=== PATIENT | male | born 1945 | race Caucasian/White ===

== ENCOUNTER 2019-07-25 09:55 | Outpatient (CLI) | payer MEDICARE, MEDICAID, SELFPAY ==
[2019-07-25 10:29] LABS: Basophils % 0.5 %; Eosinophils # 0.2 10^3/uL (0.0-0.8); Eosinophils % 3.7 %; Hemoglobin 13.1 g/dL (11.7-16.6); Lymphocytes # 1.3 10^3/uL (0.8-4.8); Lymphocytes % 21.3 %; Mean Corpuscular Hemoglobin 33.9 pg (28.0-34.0); Mean Corpuscular Volume 106.2 fL (80-94); Mean Platelet Volume 10.9 fL (7.4-10.4); Monocytes # 0.5 10^3/uL (0.2-0.9); Monocytes % 7.3 %; Neutrophils # 4.1 10^3/uL (1.8-7.7); Neutrophils % 66.9 %; Nucleated Red Blood Cells % 0 %; Platelet Count 204 10^3/cmm (130-400); Red Blood Count 3.86 10^6/uL (4.1-5.3); Red Cell Distribution Width 12.7 % (12.1-15.1); White Blood Count 6.1 10^3/uL (4.0-10.0)
[2019-07-25 10:47] LABS: Carcinoembryonic Antigen 5.3 ng/mL (0.0-4.7)
[2019-07-25 10:58] LABS: Alanine Aminotransferase 22 U/L (0-41); Albumin Level 4.5 g/dL (3.5-5.2); Alkaline Phosphatase 80 IU/L (40-130); Anion Gap 15.5 (5-19); Aspartate Amino Transferase 20 U/L (0-40); Blood Urea Nitrogen 14 mg/dL (8-23); Calcium 9.7 mg/dL (8.5-10.5); Carbon Dioxide 26 mmol/L (22-29); Chloride 101 mmol/L (98-107); Globulin 3.5 g/dL (1.3-4.6); Glucose 119 mg/dL (65-115); Osmolality Calculated 283 mOsm/kg (285-295); Potassium 4.5 mmol/L (3.5-5.1); Sodium 138 mmol/L (136-145); Total Bilirubin 0.5 mg/dL (0.15-1.2)
--- NOTE | 2019-07-25 11:41 | ONC FU_ITS ---
Dr. Moreno Patient Follow-Up Note Patient: Sully Cardoza Unit #: [id number]: 1945 Dicatated By: Vignesh Moreno M.D.Date of Visit:Jul 25, 2019 Onc Med Follow-up/Prog Note Chief Complaint: Colon cancer. 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 He was admitted to the hospital in March 2016 after presenting to the emergency room with a two-week history of abdominal pain. He also had been having constipation, and just prior to admission he developed nausea/vomiting. CT of the abdomen/pelvis on 03/21/2016 showed a short segment of circumferential bowel wall thickening with luminal narrowing in the proximal transverse colon. It had an apple core type appearance suggestive of a primary colon neoplasm. There are no findings of obstruction present and there was no appreciable lymphadenopathy noted. There is no other obvious metastatic involvement. Colonoscopy on 03/23/2016 showed a partially obstructing malignant appearing mass in the distal ascending colon. It is estimated 5 x 4 cm. Biopsy showed microscopic foci of infiltrating adenocarcinoma. On 04/08/2016 he underwent laparoscopic right hemicolectomy. The operative note described a partially obstructing mass at the proximal transverse colon with no evidence of peritoneal carcinomatosis or other metastatic disease. Pathology showed low-grade (well to moderately differentiated) infiltrating adenocarcinoma with invasion through the muscularis propria into the pericolonic fat. There was evidence of lymphovascular space invasion. The proximal margin was measured 16 cm, distal margin at 7 cm, and radial margin at 2 mm. There was no involvement and 14 pericolonic lymph nodes. Thus, the pathologic staging was T3, N0. An assessment for microsatellite instability showed normal expression of DNA mismatch repair proteins. I had seen the patient initially on 05/20/2016. At the time, he has indicated he would be willing to consider adjuvant chemotherapy if he was higher than average risk for recurrence. As such, I did request further evaluation with Oncotype DX. It showed a recurrence score of 39, corresponding to a 3-year risk of recurrence of 18% with a T3 primary lesion. Given that result, I recommended adjuvant chemotherapy with infusional 5-FU/leucovorin, and he did agree to treatment as recommended. His cycle 1 chemotherapy began on 07/07/2016. He tolerated it well. He was then able to continue treatment with no delays or dose adjustments. He began his 12th and final cycle of chemotherapy on 12/08/2016. Surveillance CT of the abdomen/pelvis on 01/06/2017 showed no evidence of recurrence/metastatic disease. His surveillance colonoscopy on 03/17/2017 showed normal looking ileocolon anastomosis with no other abnormalities noted. 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 He has been followed by Dr. Son at pain clinic. His other medical illnesses include hypertension, hyperlipidemia, and COPD. He has a history of smoking for 58 years, previously up to 3 packs of cigarettes daily. He had cut down to 4 cigarettes per day, and he has been trying to quit. INTERIM HISTORY: CT scans on 07/08/2017 showed no evidence of recurrent or metastatic disease in the chest, abdomen, or pelvis. There were findings of chronic emphysema which were noted to have progressed compared to previous study from July 2014. There was central pulmonary artery enlargement compatible with pulmonary hypertension. There was diffuse fatty infiltration of the liver. There were degenerative changes in the thoracic spine and there was evidence of remote L1 and L5 compression fractures. His laboratory studies on 08/01/2018 did show a slight increase in the CEA level, to 5.1 ng/mL. Surveillance CT scans at that time showed chronic emphysema, suspected pulmonary hypertension, and unchanged infrarenal abdominal aortic aneurysm measuring 3.3 cm. There was no evidence of disease progression in the chest, abdomen, or pelvis. He continued on observation/expectant management. Surveillance colonoscopy on 11/16/2018 showed a few small diverticuli in the distal sigmoid colon. There were no other abnormal findings. Repeat CEA at that time was stable at 5.3 ng/mL. He continued on observation/expectant management. He is seen for a follow-up visit. He continues have very limited activity due to pain in his lower back and right hip. He says he has had no pain medication since August of last year. His ECOG score is 3. Appetite is variable. His weight is stable. He does not have fever or night sweats. He always has sinus drainage. He has just occasional cough. He has some shortness of breath with activity. He is still smoking, but only 4 cigarettes/day. He occasionally has discomfort at the Port-A-Cath site. He otherwise has no chest pain. He has no GI/ complaints other than occasional heartburn, which he manages with Tums. He has occasional slight headache. He occasionally gets lightheaded. He has started having some numbness/tingling on the bottom of his right foot. He has no other focal neurologic symptoms. Medications: Advair Diskus 1 (250-50 mcg/dose) Aerosol Powder, Breath Activated Inhalation b.i.d., Ativan 0.5 - 1 (1 mg) Tablet Oral t.i.d. PRN, Atorvastatin Calcium 1 (80 mg) Tablet Oral daily, Incruse Ellipta 1 (62.5 mcg/inh) Aerosol Powder, Breath Activated Inhalation daily, Lisinopril 1 (10 mg) Tablet Oral daily, Loratadine 1 (10 mg) Capsule Oral daily Allergies: No Known Allergies. Review of Systems: Constitutional - His energy level is okay. His activity level is limited due to uncontrolled back and hip pain. His appetite comes and goes, but he is able to eat. His weight is stable from his last visit. No fever, chills, hot flashes, or night sweats. ECOG score is 3, ENMT - He has chronic sinus drainage. No mouth sores. No sore throat or difficulty swallowing, Hematologic/Lymphatic - No abnormal bruising or bleeding, Respiratory - He gets short of breath with activity. He has a cough. No pleuritic pain or hemoptysis, Cardiovascular - No angina pain. No palpitations. He gets occasional pain to his upper chest well where his port was, Gastrointestinal - No nausea or vomiting. He gets occasional heartburn depending on what he eats, but it well controlled with Tums. No diarrhea or constipation. No blood in the stool or black stools, Genitourinary (M) - No dysuria or hematuria. No urinary frequency. No urgency or incontinence, Musculoskeletal - He is having a significant amount of pain in his back and right hip, which is chronic for him, Integumentary - No skin complications, Neurologic - He has occasional headaches. He occasionally gets lightheaded. He has recently started having numbness/tingling on the bottom of his right foot, Psychiatric - He has some mild anxiety. No depression. He has insomnia. Vital Signs: Performed on Jul 25, 2019 10:16 Height - 71.00 in Weight - 214.8 lbs (HIGH) BSA - 2.17 sq.m BMI - 29.96 Temperature - 98.7 F Pulse - 79 /min Respiration - 24 /min BP - 158/90 mm(hg) (HIGH) O2 Sat - 97 % Pain - 9 Physical Examination: Constitutional - He appears generally weak and chronically ill. He has poor mobility, Eyes - Sclerae nonicteric. Conjunctivae clear, ENMT - No lesions noted in the oral cavity, Hematologic/Lymphatic - No cervical, clavicular, or axillary adenopathy, Respiratory - Lungs sound clear with diminished air movement bilaterally, Cardiovascular - Heart rhythm is regular. There is no murmur, gallop, or rub noted, Abdomen - Soft. Liver and spleen are not enlarged. There is no abdominal mass or ascites noted and there is no inguinal adenopathy, Extremities - No edema, Neurologic - No focal neurologic deficits noted. Lab/Imaging: Test performed on Jul 25, 2019 10:05 Sodium 138 mmol/L Potassium 4.5 mmol/L Chloride 101 mmol/L CO2 26 mmol/L Anion Gap 15.5 BUN 14 mg/dL Creatinine 1.0 mg/dL Cr Clearance (Est) 87.9600 mL/min Glucose 119 mg/dL Calcium 9.7 mg/dL Protein, Total 8.0 g/dL Albumin 4.5 g/dL Globulin 3.5 g/dL Bilirubin, Total 0.5 mg/dL ALT (SGPT) 22 U/L AST (SGOT) 20 U/L Alkaline Phosphatase 80 IU/L WBC 6.1 10 3/uL RBC 3.86 10 6/uL HGB 13.1 g/dL HCT 41.0 % MCV 106.2 fL MCH 33.9 pg MCHC 32.0 g/dL RDW 12.7 % Platelet Count 204 10 3/cmm MPV 10.9 fL Neutrophils 4.1 10 3/uL Lymphocytes 1.3 10 3/uL Monocytes 0.5 10 3/uL Eosinophils 0.2 10 3/uL Basophils 0.0 10 3/uL Neutrophil % 66.9 % Lymphocyte % 21.3 % Monocyte % 7.3 % Eosinophil % 3.7 % Basophils % 0.5 % CEA 5.3 ng/mL Impression: 1. 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 He underwent laparoscopic right hemicolectomy on 04/08/2016. He had no obstruction, perforation, or other high risk clinical features. He had adequate lymph node sampling, but there was pathologic evidence of vascular space invasion. Microsatellite instability studies showed normal expression of DNA mismatch repair proteins. 2. He had further evaluation with Oncotype DX which showed a recurrence score of 39, corresponding to a 3-year risk of recurrence of 18%. Given that result, he was agreeable to adjuvant chemotherapy. His other medical illnesses include: 3. Hypertension. 4. Hyperlipidemia. 5. COPD. 6. 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 He began adjuvant chemotherapy with infusional 5-FU/leucovorin on 07/07/2016. He has had some gradual increase in fatigue and anorexia during the chemotherapy, but he otherwise tolerated it well. As of 12/08/2016 he began his 12th and final cycle of treatment. He had negative surveillance CT abdomen/pelvis on 01/06/2017 and there were no significant abnormalities noted on his surveillance colonoscopy on 03/17/2017. During follow-up he did show slight increase in his CEA level, but it then stabilized. There has been no evidence of recurrence of the colon cancer on his surveillance CT scans or his surveillance colonoscopy. He has had very limited activity due to his chronic pain, indicates that he has had no pain medication since August of last year. In the past he has benefited with radiofrequency ablation procedures. He indicates he has been told that he is not a surgical candidate. Plan: He remains on observation/expectant management for the colon cancer. I am going to defer his surveillance CT scans until his next visit, which will be in 6 months. In the meantime, I will see if I get him scheduled to be seen at pain clinic for his back/hip pain. Signed By: Vignesh Moreno M.D. <<Signature on File>>
== END 2019-07-25 09:56 | disposition home or self-care (01) ==
LOC: ONCMED 09:58
PROVIDERS: Family Provider Internal Medicine; PCP Internal Medicine; Visit Provider Internal Medicine Medical Oncology
DX: Z08 Encounter for follow-up examination after completed treatment for malignant neoplasm (principal); Z85.038 Personal history of other malignant neoplasm of large intestine; J43.9 Emphysema, unspecified; M19.90 Unspecified osteoarthritis, unspecified site; G89.29 Other chronic pain; I10 Essential (primary) hypertension; E78.5 Hyperlipidemia, unspecified; F17.210 Nicotine dependence, cigarettes, uncomplicated; I27.20 Pulmonary hypertension, unspecified; K76.0 Fatty (change of) liver, not elsewhere classified; Z79.51 Long term (current) use of inhaled steroids; Z92.21 Personal history of antineoplastic chemotherapy; Z90.49 Acquired absence of other specified parts of digestive tract
CPT/HCPCS: 36415; 80053; 82378; 85025; 99214

== ENCOUNTER → 2019-08-01 08:21 | Outpatient (BNVA) | payer MEDICARE, MEDICAID, SELFPAY | PROVIDERS: Family Provider Internal Medicine; PCP Internal Medicine; Visit Provider Anesthesiology Pain Medicine | DX: M47.816 Spondylosis without myelopathy or radiculopathy, lumbar region (principal); M62.830 Muscle spasm of back; F17.210 Nicotine dependence, cigarettes, uncomplicated; Z79.891 Long term (current) use of opiate analgesic | CPT/HCPCS: 99205 ==

== ENCOUNTER → 2019-09-15 14:26 | Outpatient (BNVA) | payer MEDICARE, MEDICAID, SELFPAY | PROVIDERS: Family Provider Internal Medicine; PCP Internal Medicine; Visit Provider Anesthesiology Pain Medicine | DX: M47.816 Spondylosis without myelopathy or radiculopathy, lumbar region (principal); M54.9 Dorsalgia, unspecified; F17.210 Nicotine dependence, cigarettes, uncomplicated; Z79.891 Long term (current) use of opiate analgesic | CPT/HCPCS: 64635; 64636; 77003; J1030; J2001 ==

== ENCOUNTER → 2019-09-27 10:11 | Outpatient (BNVA) | payer MEDICARE, MEDICAID, SELFPAY | PROVIDERS: Family Provider Internal Medicine; PCP Internal Medicine; Visit Provider Anesthesiology Pain Medicine | DX: M25.551 Pain in right hip (principal); M47.816 Spondylosis without myelopathy or radiculopathy, lumbar region; M54.9 Dorsalgia, unspecified; M62.830 Muscle spasm of back; F17.210 Nicotine dependence, cigarettes, uncomplicated; Z79.891 Long term (current) use of opiate analgesic | CPT/HCPCS: 99213; 99214 ==

== ENCOUNTER → 2019-10-03 12:24 | Outpatient (BNVA) | payer MEDICARE, MEDICAID, SELFPAY | PROVIDERS: Family Provider Internal Medicine; PCP Internal Medicine; Visit Provider Anesthesiology Pain Medicine | DX: M47.816 Spondylosis without myelopathy or radiculopathy, lumbar region (principal); M54.9 Dorsalgia, unspecified; F17.210 Nicotine dependence, cigarettes, uncomplicated; Z79.891 Long term (current) use of opiate analgesic | CPT/HCPCS: 64635; 64636; 77003; J1030; J2001 ==

== ENCOUNTER → 2019-10-18 09:53 | Outpatient (BNVA) | payer MEDICARE, MEDICAID, SELFPAY | PROVIDERS: Family Provider Internal Medicine; PCP Internal Medicine; Visit Provider Anesthesiology Pain Medicine | DX: M47.816 Spondylosis without myelopathy or radiculopathy, lumbar region (principal); M54.9 Dorsalgia, unspecified; M62.830 Muscle spasm of back; F17.210 Nicotine dependence, cigarettes, uncomplicated; Z79.891 Long term (current) use of opiate analgesic | CPT/HCPCS: 99213; 99214 ==

== ENCOUNTER 2019-11-08 13:10 | Outpatient (CLI) | payer MEDICARE, MEDICAID, SELFPAY ==
--- NOTE | 2019-11-08 13:22 | CT_ITS ---
WS: [id number] CT LUNG CANCER SCREENING DLP: 76.38 mGy.cm DIvol: 2.13 mGy CLINICAL INFORMATION SCREENING VISIT: Baseline COMPARISON: Chest CT 08/01/2018 FINDINGS Diagnostic quality: Satisfactory Comments: None. Lung Nodules: None. Lungs: Benign granuloma periphery LEFT upper lobe measures 7.4 mm. Marked hyperexpansion with parasep pito emphysema. Heart: Normal size heart. No pericardial effusion. Other findings: Moderately enlarged pulmonary artery measuring 3.7 cm in diameter. Mild atheroscleros is aorta. No coronary artery calcifications. No pericardial pleural effusion. CT/CT lung screening [id number] IMPRESSION: LUNG-RADS: 2-Benign Appearance or Behavior FOLLOW UP: 12 Month: Continue annual screening with LDCT
== END 2019-11-08 13:11 | disposition home or self-care (01) ==
LOC: RAD 13:14
PROVIDERS: PCP Internal Medicine; Visit Provider Internal Medicine
DX: Z12.2 Encounter for screening for malignant neoplasm of respiratory organs (principal); F17.210 Nicotine dependence, cigarettes, uncomplicated
CPT/HCPCS: G0297

== ENCOUNTER → 2019-11-21 11:20 | Outpatient (BNVA) | payer MEDICARE, MEDICAID, SELFPAY | PROVIDERS: Family Provider Internal Medicine; PCP Internal Medicine; Visit Provider Anesthesiology Pain Medicine | DX: M47.816 Spondylosis without myelopathy or radiculopathy, lumbar region (principal); M54.9 Dorsalgia, unspecified; M62.830 Muscle spasm of back; F17.210 Nicotine dependence, cigarettes, uncomplicated; Z79.891 Long term (current) use of opiate analgesic | CPT/HCPCS: 99213 ==

== ENCOUNTER → 2019-12-20 10:49 | Outpatient (BNVA) | payer MEDICARE, MEDICAID, SELFPAY | PROVIDERS: Family Provider Internal Medicine; PCP Internal Medicine; Visit Provider Anesthesiology Pain Medicine | DX: M47.816 Spondylosis without myelopathy or radiculopathy, lumbar region (principal); M54.9 Dorsalgia, unspecified; M62.830 Muscle spasm of back; Z79.891 Long term (current) use of opiate analgesic | CPT/HCPCS: 99213; 99214 ==

== ENCOUNTER 2019-12-27 07:49 | Day surgery (SDC) | payer MEDICARE, MEDICAID, SELFPAY ==
[2019-12-25 11:07] VITALS: BMI 29.2
[2019-12-27 07:59] VITALS: BP 152/98; PULSE 74; RESP 18; TEMP 37.1; O2SAT 95
[2019-12-27] MEDS: sodium chloride 0.9% 1,000 ML 30 ML IV (08:31)
--- NOTE | 2019-12-27 09:10 | P.ANESASSM_ITS ---
Pre-Anesthetic Assessment Pre-Anesthetic Assessment: Height/Weight: Height 1.78 m Weight 92.533 kg Temp Pulse Resp BP Pulse Ox 98.7 F 74 18 152/98 95 12/27/19 07:59 12/27/19 07:59 12/27/19 07:59 12/27/19 07:59 12/27/19 07:59 Preop Diagnosis: History of colon cancer Proposed Procedure: Operation Date: 12/27/19 09:15 Proposed Procedures p Colonoscopy 00167 Z85.038(Not Applicable) - Vikas Oviedo MD Was Beta Vickey taken within 24 hours: N/A Last intake: Intake Last Liquid Date 12/26/19 Last Liquid Time 22:00 Last Solid Date 12/25/19 Last Solid Time 18:30 Social: Social History: Tobacco Exam: Pre-Anes Outpt Exam: alert, oriented x 3 and regular rate & rhythm Additional Exam Findings (including area of procedure): Late expiratory wheezes Airway: Submandibular: WNL Cervical ROM: WNL MP: 1 Dentition: Full Pulmonary: Pulmonary: COPD CV/HEM: CV/HEM: HTN : : None reported Hepatic: Hepatic: None reported GI: GI: GERD Comments: Mild food triggered GERD Metabolic: Metabolic: None reported Musc/skel: Musc/skel: None reported Neuropsych: Neuropsych: None reported Anesthetic Plan: ASA status: 3 Anesthesia: MAC Meds/Allergies 2 Current Medications: Current Medications Generic Name Dose Route Start Last Admin Trade Name Freq PRN Reason Stop Dose Admin Sodium Chloride 1,000 mls @ 30 ml s/hr 12/27/19 08:00 12/27/19 08:31 Sodium Chloride 0.9% IV 30 mls/hr .Q24H YAJAIRA Administration PFSH Anesthesia PFSH: Medical History COPD (chronic obstructive pulmonary disease) DDD (degenerative disc disease) HTN (hypertension) Hx of colon cancer, stage II Hyperlipidemia assisted (current) use of opiate analgesic Pain management contract signed Smoker Surgical History History of ankle surgery Right ankle 1980 History of colonoscopy History of implanted electronic device Spinal Cord Stimulator permanent placed 01/2013 then removed 01/2014 due to no relief Hx of colectomy 2015 Hx of knee surgery Left -Jun 1982 cartilage removed Hx of total knee replacement Left -2002 Family History Denies family history of Anesthesia complication Bleeding disorder Social History Smoking and tobacco status: current every day smoker cigarettes Alcohol intake: former Data Anesthesia Cardiac Studies: No Data to Display
--- NOTE | 2019-12-27 09:50 | W.PM.OPSUD ---
Surgery/Procedure H&P Update DATE OF PROCEDURE: December 27, 2019 DATE H&P PERFORMED: 11/29/19 H&P UPDATE INFORMATION: I have reviewed H&P completed within last 30 days, I have examined patient prior to procedure and No changes to prior documentation PREOP DIAGNOSIS: History of colon cancer PRIMARY INDICATION FOR PROCEDURE: The same PLANNED PROCEDURE: Operation Date: 12/27/19 09:15 Proposed Procedures p Colonoscopy [id number] Z85.038(Not Applicable) - Vikas Oviedo MD
[2019-12-27 10:09] VITALS: BP 95/59; PULSE 59; RESP 18; TEMP 36.1; O2SAT 100
[2019-12-27 10:22] VITALS: BP 128/71; PULSE 60; RESP 18; O2SAT 99
--- NOTE | 2019-12-27 10:33 | ANE.PACU2 ---
Inpatient post-anesthesia follow up: Airway intact: Yes Vital signs: Temperature 97.0 F Pulse Rate 60 Respiratory Rate 18 Blood Pressure 128/71 Pulse Oximetry 99 Oxygen Delivery Me thod Room Air Oxygen Flow Rate 2 Fraction of Inspir ed Oxygen Hydration adequate: Yes Nausea and vomiting: No Mental status: Baseline
== END 2019-12-27 10:50 | disposition home or self-care (01) ==
PROVIDERS: PCP Internal Medicine; Visit Provider Surgery
PROC: 0DJD8ZZ Inspection of Lower Intestinal Tract, Via Natural or Artificial Opening Endoscopic (ICD-10-PCS; CPT 45378; principal; 2019-12-27 09:15)
DX: Z12.11 Encounter for screening for malignant neoplasm of colon (principal); K57.30 Diverticulosis of large intestine without perforation or abscess without bleeding; J44.9 Chronic obstructive pulmonary disease, unspecified; I10 Essential (primary) hypertension; K21.9 Gastro-esophageal reflux disease without esophagitis; E78.5 Hyperlipidemia, unspecified; F17.210 Nicotine dependence, cigarettes, uncomplicated; Z85.038 Personal history of other malignant neoplasm of large intestine; Z79.891 Long term (current) use of opiate analgesic; Z90.49 Acquired absence of other specified parts of digestive tract; Z98.0 Intestinal bypass and anastomosis status
CPT/HCPCS: 12345; 45378; J2704; J7030

== ENCOUNTER → 2020-01-17 09:24 | Outpatient (BNVA) | payer MEDICARE, MEDICAID, SELFPAY | PROVIDERS: Family Provider Internal Medicine; PCP Internal Medicine; Visit Provider Anesthesiology Pain Medicine | DX: M54.42 Lumbago with sciatica, left side (principal); M54.41 Lumbago with sciatica, right side; M47.816 Spondylosis without myelopathy or radiculopathy, lumbar region; M54.9 Dorsalgia, unspecified; M62.830 Muscle spasm of back; F17.210 Nicotine dependence, cigarettes, uncomplicated; Z79.891 Long term (current) use of opiate analgesic | CPT/HCPCS: 99213 ==

== ENCOUNTER 2020-01-23 09:28 | Outpatient (CLI) | payer MEDICARE, MEDICAID, SELFPAY ==
--- NOTE | 2020-01-23 09:31 | CT_ITS ---
WS: [id number] CT CHEST, ABDOMEN, AND PELVIS TECHNIQUE: Contrast-enhanced CT of the chest, abdomen, and pelvis with coronal and sagittal reformatt ed images. CLINICAL INFORMATION: COLON CANCER COMPARISON: CT abdomen pelvis October 28, 2018 CT chest abdomen pelvis 08/01/2018 and 12/20/2017. CT chest November 08, 2019 DLP: 1853.[address] scans at [facility] use at least one of these dose optimization techniques: automat ed exposure control; mA and/or kV adjustment per patient size (includes targeted exams where dose is matched to clinical indication); or iterative reconstruction. CT CHEST: Calcified granuloma right upper lobe. Mild chronic emphysematous changes. No suspicious pulmonary par enchymal opacities. No acute pulmonary infiltrates. Normal thyroid gland. No mediastinal or hilar lym phadenopathy. Central pulmonary artery enlargement unchanged. Moderate aortic arch calcification. No axillary lymphadenopathy. CT ABDOMEN AND PELVIS: Prior postoperative changes right hemicolectomy with ileocolic anastomosis. Diffuse fatty infiltratio n liver. Normal gallbladder. Normal portal vein and splenic vein. Adrenal glands are normal. Normal r enal parenchymal enhancement. No hydronephrosis. Right renal cysts the largest measuring 3.9 CM. Aneu rysmal infrarenal abdominal aorta measuring 3.3 x 3.3 AP by transverse unchanged. No evidence of small or large bowel obstruction. Mild constipation. Incidental fat-containing umbilic al hernia. No herniated bowel. Normal GE junction. No periaortic lymphadenopathy. No pelvic lymphaden opathy. No inguinal lymphadenopathy. Mild thoracic kyphosis. Mild chronic appearing compression super ior endplates at L1 and L5. Thoracic dorsal column stimulator. CT/CT chest abd pel w con* IMPRESSION: 1. No evidence of new or progressed metastatic disease in the chest abdomen or pelvis. 2. Both lungs are well aerated. Chronic emphysematous change. 3. Stable infrarenal abdominal aortic aneurysm measuring 3.3 cm. 4. Incidental Supraumbilical fat-containing hernia. 5. Thoracic Dorsal column stimulator. 6. Mild chronic compression superior endplate L1 and L5 vertebral bodies uncha nged
[2020-01-23 10:02] LABS: Basophils % 0.4 %; Eosinophils # 0.2 10^3/uL (0.0-0.8); Eosinophils % 3.4 %; Hematocrit 38.7 % (42.0-52.0); Hemoglobin 12.3 g/dL (11.7-16.6); Lymphocytes # 1.1 10^3/uL (0.8-4.8); Lymphocytes % 15.9 %; Mean Corpuscular HGB Conc 31.8 g/dL (30.0-36.0); Mean Corpuscular Volume 106.9 fL (80-94); Monocytes # 0.4 10^3/uL (0.2-0.9); Monocytes % 6.5 %; Neutrophils # 4.99 10^3/uL (1.8-7.7); Neutrophils % 73.5 %; Nucleated Red Blood Cells % 0 %; Platelet Count 227 10^3/cmm (130-400); Red Blood Count 3.62 10^6/uL (4.1-5.3); Red Cell Distribution Width 12.2 % (12.1-15.1); White Blood Count 6.8 10^3/uL (4.0-10.0)
[2020-01-23] MEDS: iohexol 300 mg/mL 50 mL Btl PO (10:29)
[2020-01-23 10:48] LABS: Carcinoembryonic Antigen 4.5 ng/mL (0.0-4.7)
[2020-01-23 11:00] LABS: Alanine Aminotransferase 21 U/L (0-41); Albumin Level 4.7 g/dL (3.5-5.2); Alkaline Phosphatase 60 IU/L (40-130); Anion Gap 14.5 (5-19); Aspartate Amino Transferase 18 U/L (0-40); Blood Urea Nitrogen 27 mg/dL (8-23); Calcium 9.1 mg/dL (8.5-10.5); Carbon Dioxide 26 mmol/L (22-29); Chloride 103 mmol/L (98-107); Globulin 3.2 g/dL (1.3-4.6); Glucose 113 mg/dL (65-115); Osmolality Calculated 294 mOsm/kg (285-295); Potassium 4.5 mmol/L (3.5-5.1); Sodium 139 mmol/L (136-145); Total Bilirubin 0.5 mg/dL (0.15-1.2); Total Protein 7.9 g/dL (6.6-8.7)
[2020-01-23] MEDS: iodixanol 320 mg/mL 100mL Btl IV (11:17)
== END 2020-01-23 09:29 | disposition home or self-care (01) ==
LOC: RAD 09:29
PROVIDERS: PCP Internal Medicine; Visit Provider Internal Medicine Medical Oncology
DX: C18.4 Malignant neoplasm of transverse colon (principal); K43.9 Ventral hernia without obstruction or gangrene; I71.4 Abdominal aortic aneurysm, without rupture
CPT/HCPCS: 36415; 71260; 74177; 80053; 82378; 85025

== ENCOUNTER 2020-01-24 11:56 | Outpatient (RCR) | payer MEDICARE, MEDICAID, SELFPAY | END 2020-01-31 23:59 | disposition home or self-care (01) | LOC: SPT 11:56 | PROVIDERS: PCP Internal Medicine; Referring Provider Anesthesiology Pain Medicine; Visit Provider Anesthesiology Pain Medicine | DX: M47.816 Spondylosis without myelopathy or radiculopathy, lumbar region (principal) | CPT/HCPCS: 97162 ==

== ENCOUNTER 2020-01-25 12:22 | Outpatient (CLI) | payer MEDICARE, MEDICAID, SELFPAY ==
--- NOTE | 2020-01-25 13:08 | ONC FU_ITS ---
Dr. Moreno Patient Follow-Up Note Patient: Sully Cardoza Unit #: [id number]: 1945 Dicatated By: Vignesh Moreno M.D.Date of Visit:Jan 25, 2020 Onc Med Follow-up/Prog Note Chief Complaint: Colon cancer. 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 He was admitted to the hospital in March 2016 after presenting to the emergency room with a two-week history of abdominal pain. He also had been having constipation, and just prior to admission he developed nausea/vomiting. CT of the abdomen/pelvis on 03/21/2016 showed a short segment of circumferential bowel wall thickening with luminal narrowing in the proximal transverse colon. It had an apple core type appearance suggestive of a primary colon neoplasm. There are no findings of obstruction present and there was no appreciable lymphadenopathy noted. There is no other obvious metastatic involvement. Colonoscopy on 03/23/2016 showed a partially obstructing malignant appearing mass in the distal ascending colon. It is estimated 5 x 4 cm. Biopsy showed microscopic foci of infiltrating adenocarcinoma. On 04/08/2016 he underwent laparoscopic right hemicolectomy. The operative note described a partially obstructing mass at the proximal transverse colon with no evidence of peritoneal carcinomatosis or other metastatic disease. Pathology showed low-grade (well to moderately differentiated) infiltrating adenocarcinoma with invasion through the muscularis propria into the pericolonic fat. There was evidence of lymphovascular space invasion. The proximal margin was measured 16 cm, distal margin at 7 cm, and radial margin at 2 mm. There was no involvement and 14 pericolonic lymph nodes. Thus, the pathologic staging was T3, N0. An assessment for microsatellite instability showed normal expression of DNA mismatch repair proteins. I had seen the patient initially on 05/20/2016. At the time, he has indicated he would be willing to consider adjuvant chemotherapy if he was higher than average risk for recurrence. As such, I did request further evaluation with Oncotype DX. It showed a recurrence score of 39, corresponding to a 3-year risk of recurrence of 18% with a T3 primary lesion. Given that result, I recommended adjuvant chemotherapy with infusional 5-FU/leucovorin, and he did agree to treatment as recommended. His cycle 1 chemotherapy began on 07/07/2016. He tolerated it well. He was then able to continue treatment with no delays or dose adjustments. He began his 12th and final cycle of chemotherapy on 12/08/2016. Surveillance CT of the abdomen/pelvis on 01/06/2017 showed no evidence of recurrence/metastatic disease. His surveillance colonoscopy on 03/17/2017 showed normal looking ileocolon anastomosis with no other abnormalities noted. 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 He has been followed by Dr. Son at pain clinic. His other medical illnesses include hypertension, hyperlipidemia, and COPD. He has a history of smoking for 58 years, previously up to 3 packs of cigarettes daily. He had cut down to 4 cigarettes per day, and he has been trying to quit. INTERIM HISTORY: CT scans on 07/08/2017 showed no evidence of recurrent or metastatic disease in the chest, abdomen, or pelvis. There were findings of chronic emphysema which were noted to have progressed compared to previous study from July 2014. There was central pulmonary artery enlargement compatible with pulmonary hypertension. There was diffuse fatty infiltration of the liver. There were degenerative changes in the thoracic spine and there was evidence of remote L1 and L5 compression fractures. His laboratory studies on 08/01/2018 did show a slight increase in the CEA level, to 5.1 ng/mL. Surveillance CT scans at that time showed chronic emphysema, suspected pulmonary hypertension, and unchanged infrarenal abdominal aortic aneurysm measuring 3.3 cm. There was no evidence of disease progression in the chest, abdomen, or pelvis. He continued on observation/expectant management. Surveillance colonoscopy on 11/16/2018 showed a few small diverticuli in the distal sigmoid colon. There were no other abnormal findings. Repeat CEA at that time was stable at 5.3 ng/mL. He continued on observation/expectant management. His surveillance colonoscopy on 12/27/2019 showed patent ileocolic anastomosis. There evidence of diverticulosis in the sigmoid colon. There were no other abnormalities noted. Surveillance CT scans on 01/23/2020 showed no evidence of new or progressed metastatic disease in the chest, abdomen, or pelvis. He is seen for a scheduled visit. He continues to have limited activity due to his pain. He is mostly sedentary. ECOG score is 3. Appetite is generally good, though his weight is down 8 pounds. He does not have fever or night sweats. He has chronic shortness of breath. His breathing is about the same. He has very little cough. He does not complain of chest pain. He has occasional postprandial vomiting, mainly when his pain is bad. He has no complaints with bowel or bladder function. His pain is mainly in the back and hip. He does not complain of headache or dizziness. He has a little numbness/tingling on the bottom of his right foot. He has no other focal neurologic symptoms. Medications: Advair Diskus 1 (250-50 mcg/dose) Aerosol Powder, Breath Activated Inhalation b.i.d., Ativan 0.5 - 1 (1 mg) Tablet Oral t.i.d. PRN, Atorvastatin Calcium 1 (80 mg) Tablet Oral daily, Incruse Ellipta 1 (62.5 mcg/inh) Aerosol Powder, Breath Activated Inhalation daily, Lisinopril 1 (10 mg) Tablet Oral daily, Loratadine 1 (10 mg) Capsule Oral daily, oxyCODONE-Acetaminophen 1 Tablet (of 7.5-325 mg) Oral t.i.d. PRN Allergies: No Known Allergies. Review of Systems: Constitutional - He has very limited activity due to his pain. He is mostly sedentary. Appetite is generally good. His weight is down 8 pounds. He does not have fever or night sweats. ECOG score is 3, ENMT - He has sinus congestion/drainage. No mouth sores. No sore throat or difficulty swallowing, Hematologic/Lymphatic - No abnormal bruising or bleeding, Respiratory - He has shortness of breath. He has very little cough. No pleuritic pain or hemoptysis, Cardiovascular - No angina pain. No palpitations, Gastrointestinal - He has occasional postprandial vomiting, mainly just when his pain is bad. No heartburn or acid reflux. No diarrhea or constipation. No blood in the stool or black stools, Genitourinary (M) - No dysuria or hematuria. No urinary frequency. No urgency or incontinence, Musculoskeletal - He has pain in his back and hip, Integumentary - No skin rash, Neurologic - No headache or dizziness. He has a little numbness/tingling on the bottoms of his feet. No other focal neurologic symptoms, Psychiatric - No anxiety or depression. He does not sleep well at night. Vital Signs: Performed on Jan 25, 2020 12:34 Height - 71.00 in Weight - 206.6 lbs (LOW) BSA - 2.14 sq.m BMI - 28.82 Temperature - 98.2 F (LOW) Pulse - 75 /min Respiration - 22 /min BP - 159/79 mm(hg) (HIGH) O2 Sat - 96 % Pain - 9 Physical Examination: Constitutional - He has poor mobility. He does not appear acutely ill, Eyes - Sclerae nonicteric. Conjunctivae clear, ENMT - No lesions noted in the oral cavity, Hematologic/Lymphatic - No cervical, clavicular, or axillary adenopathy, Respiratory - Lungs show diminished air movement bilaterally. There are coarse rales bilaterally and there are mild expiratory rhonchi, Cardiovascular - Heart rhythm is regular. There is no murmur, gallop, or rub noted, Abdomen - Soft. Liver and spleen are not enlarged. There is no abdominal mass or ascites noted and there is no inguinal adenopathy, Extremities - No edema, Neurologic - No focal neurologic deficits noted. Lab/Imaging: CBC shows hemoglobin 12.3 g, white blood cell count 6800, and platelet count 227,000. Comprehensive metabolic profile is unremarkable except for borderline renal function with BUN 27 and creatinine 1.2 mg/dL. The bilirubin and liver enzymes are normal. CEA is down slightly at 4.5 ng/mL. Impression: 1. 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 He underwent laparoscopic right hemicolectomy on 04/08/2016. He had no obstruction, perforation, or other high risk clinical features. He had adequate lymph node sampling, but there was pathologic evidence of vascular space invasion. Microsatellite instability studies showed normal expression of DNA mismatch repair proteins. 2. He had further evaluation with Oncotype DX which showed a recurrence score of 39, corresponding to a 3-year risk of recurrence of 18%. Given that result, he was agreeable to adjuvant chemotherapy. His other medical illnesses include: 3. Hypertension. 4. Hyperlipidemia. 5. COPD. 6. 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 He began adjuvant chemotherapy with infusional 5-FU/leucovorin on 07/07/2016. He has had some gradual increase in fatigue and anorexia during the chemotherapy, but he otherwise tolerated it well. As of 12/08/2016 he began his 12th and final cycle of treatment. He had negative surveillance CT abdomen/pelvis on 01/06/2017 and there were no significant abnormalities noted on his surveillance colonoscopy on 03/17/2017. During follow-up he did show slight increase in his CEA level, but it then stabilized. There was no evidence of recurrence of the colon cancer on his surveillance CT scans or his surveillance colonoscopy. His CEA had subsequently stabilized and the current study is down a little. His overall clinical status has remained stable. He continues to have limited activity due to his chronic pain and he does have significant underlying COPD. There has been no evidence of recurrence of the colon cancer. Plan: He remains on observation/expectant management for the colon cancer. He will be scheduled for a follow-up visit in 6 months. Signed By: Vignesh Moreno M.D. <<Signature on File>>
== END 2020-01-25 12:23 | disposition home or self-care (01) ==
PROVIDERS: PCP Internal Medicine; Visit Provider Internal Medicine Medical Oncology
DX: Z08 Encounter for follow-up examination after completed treatment for malignant neoplasm (principal); Z85.038 Personal history of other malignant neoplasm of large intestine; J44.9 Chronic obstructive pulmonary disease, unspecified; Z90.49 Acquired absence of other specified parts of digestive tract; Z92.21 Personal history of antineoplastic chemotherapy; I10 Essential (primary) hypertension; E78.5 Hyperlipidemia, unspecified; M19.90 Unspecified osteoarthritis, unspecified site; M47.9 Spondylosis, unspecified; G89.29 Other chronic pain
CPT/HCPCS: G0463

== ENCOUNTER → 2020-02-15 11:12 | Outpatient (BNVA) | payer MEDICARE, MEDICAID, SELFPAY | PROVIDERS: Family Provider Internal Medicine; PCP Internal Medicine; Visit Provider Anesthesiology Pain Medicine | DX: M47.816 Spondylosis without myelopathy or radiculopathy, lumbar region (principal); M54.9 Dorsalgia, unspecified; M62.830 Muscle spasm of back; F17.210 Nicotine dependence, cigarettes, uncomplicated | CPT/HCPCS: 99213; 99214 ==

== ENCOUNTER → 2020-03-18 10:13 | Outpatient (BNVA) | payer MEDICARE, MEDICAID, SELFPAY | PROVIDERS: Family Provider Internal Medicine; PCP Internal Medicine; Visit Provider Anesthesiology Pain Medicine | DX: M47.816 Spondylosis without myelopathy or radiculopathy, lumbar region (principal); M54.9 Dorsalgia, unspecified; M62.830 Muscle spasm of back; F17.210 Nicotine dependence, cigarettes, uncomplicated; Z79.891 Long term (current) use of opiate analgesic | CPT/HCPCS: 99212; 99213 ==

== ENCOUNTER → 2020-04-15 10:35 | Outpatient (BNVA) | payer MEDICARE, MEDICAID, SELFPAY | PROVIDERS: Family Provider Internal Medicine; PCP Internal Medicine; Visit Provider Anesthesiology Pain Medicine | DX: M54.9 Dorsalgia, unspecified (principal); M47.816 Spondylosis without myelopathy or radiculopathy, lumbar region; M62.830 Muscle spasm of back; Z79.891 Long term (current) use of opiate analgesic | CPT/HCPCS: 99213 ==

== ENCOUNTER → 2020-05-17 10:08 | Outpatient (BNVA) | payer MEDICARE, MEDICAID, SELFPAY | PROVIDERS: Family Provider Internal Medicine; PCP Internal Medicine; Visit Provider Anesthesiology Pain Medicine | DX: M54.41 Lumbago with sciatica, right side (principal); M47.816 Spondylosis without myelopathy or radiculopathy, lumbar region; M54.9 Dorsalgia, unspecified; M62.830 Muscle spasm of back; Z79.899 Other long term (current) drug therapy; F17.210 Nicotine dependence, cigarettes, uncomplicated; Z79.891 Long term (current) use of opiate analgesic | CPT/HCPCS: 99213 ==

== ENCOUNTER → 2020-06-24 10:37 | Outpatient (BNVA) | payer MEDICARE, MEDICAID, SELFPAY | PROVIDERS: Family Provider Internal Medicine; PCP Internal Medicine; Visit Provider Anesthesiology Pain Medicine | DX: M54.41 Lumbago with sciatica, right side (principal); M47.816 Spondylosis without myelopathy or radiculopathy, lumbar region; M54.9 Dorsalgia, unspecified; M62.830 Muscle spasm of back; Z79.899 Other long term (current) drug therapy; Z79.891 Long term (current) use of opiate analgesic | CPT/HCPCS: 99214 ==

== ENCOUNTER 2020-08-30 10:51 | Outpatient (CLI) | payer MEDICARE, MEDICAID, SELFPAY ==
[2020-08-30 11:29] LABS: Basophils % 0.5 %; Eosinophils # 0.2 10^3/uL (0.0-0.8); Eosinophils % 3.3 %; Hemoglobin 13.1 g/dL (11.7-16.6); Lymphocytes # 1.1 10^3/uL (0.8-4.8); Lymphocytes % 16.7 %; Mean Corpuscular HGB Conc 32.8 g/dL (30.0-36.0); Mean Corpuscular Hemoglobin 35.3 pg (28.0-34.0); Mean Corpuscular Volume 107.8 fL (80-94); Mean Platelet Volume 10.3 fL (7.4-10.4); Monocytes # 0.7 10^3/uL (0.2-0.9); Monocytes % 9.8 %; Neutrophils % 69.4 %; Nucleated Red Blood Cells % 0 %; Platelet Count 230 10^3/cmm (130-400); Red Blood Count 3.71 10^6/uL (4.1-5.3); Red Cell Distribution Width 13.7 % (12.1-15.1); White Blood Count 6.6 10^3/uL (4.0-10.0)
[2020-08-30 12:07] LABS: Carcinoembryonic Antigen 3.9 ng/mL (0.0-4.7)
[2020-08-30 12:18] LABS: Alanine Aminotransferase 29 U/L (0-41); Albumin Level 4.7 g/dL (3.5-5.2); Alkaline Phosphatase 90 IU/L (40-130); Anion Gap 15.6 (5-19); Aspartate Amino Transferase 33 U/L (0-40); Blood Urea Nitrogen 26 mg/dL (8-23); Calcium 8.9 mg/dL (8.5-10.5); Carbon Dioxide 26 mmol/L (22-29); Chloride 101 mmol/L (98-107); Globulin 3.1 g/dL (1.3-4.6); Glucose 115 mg/dL (65-115); Osmolality Calculated 292 mOsm/kg (285-295); Potassium 4.6 mmol/L (3.5-5.1); Sodium 138 mmol/L (136-145); Total Bilirubin 0.5 mg/dL (0.15-1.2); Total Protein 7.8 g/dL (6.6-8.7)
== END 2020-08-30 10:52 | disposition home or self-care (01) ==
LOC: ONCMED 10:55
PROVIDERS: PCP Internal Medicine; Visit Provider Internal Medicine Medical Oncology
DX: C18.4 Malignant neoplasm of transverse colon (principal)
CPT/HCPCS: 36415; 80053; 82378; 85025

== ENCOUNTER 2020-09-02 06:07 | Outpatient (CLI) | payer MEDICARE, MEDICAID, SELFPAY ==
--- NOTE | 2020-09-08 13:49 | ONC FU_ITS ---
Dr. Moreno Patient Follow-Up Note Patient: Sully Cardoza Unit #: [id number]: 1945 Dicatated By: Vignesh Moreno M.D.Date of Visit:September 02, 2020 Onc Med Follow-up/Prog Note Chief Complaint: Colon cancer. 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 He was admitted to the hospital in March 2016 after presenting to the emergency room with a two-week history of abdominal pain. He also had been having constipation, and just prior to admission he developed nausea/vomiting. CT of the abdomen/pelvis on 03/21/2016 showed a short segment of circumferential bowel wall thickening with luminal narrowing in the proximal transverse colon. It had an apple core type appearance suggestive of a primary colon neoplasm. There are no findings of obstruction present and there was no appreciable lymphadenopathy noted. There is no other obvious metastatic involvement. Colonoscopy on 03/23/2016 showed a partially obstructing malignant appearing mass in the distal ascending colon. It is estimated 5 x 4 cm. Biopsy showed microscopic foci of infiltrating adenocarcinoma. On 04/08/2016 he underwent laparoscopic right hemicolectomy. The operative note described a partially obstructing mass at the proximal transverse colon with no evidence of peritoneal carcinomatosis or other metastatic disease. Pathology showed low-grade (well to moderately differentiated) infiltrating adenocarcinoma with invasion through the muscularis propria into the pericolonic fat. There was evidence of lymphovascular space invasion. The proximal margin was measured 16 cm, distal margin at 7 cm, and radial margin at 2 mm. There was no involvement and 14 pericolonic lymph nodes. Thus, the pathologic staging was T3, N0. An assessment for microsatellite instability showed normal expression of DNA mismatch repair proteins. I had seen the patient initially on 05/20/2016. At the time, he has indicated he would be willing to consider adjuvant chemotherapy if he was higher than average risk for recurrence. As such, I did request further evaluation with Oncotype DX. It showed a recurrence score of 39, corresponding to a 3-year risk of recurrence of 18% with a T3 primary lesion. Given that result, I recommended adjuvant chemotherapy with infusional 5-FU/leucovorin, and he did agree to treatment as recommended. His cycle 1 chemotherapy began on 07/07/2016. He tolerated it well. He was then able to continue treatment with no delays or dose adjustments. He began his 12th and final cycle of chemotherapy on 12/08/2016. Surveillance CT of the abdomen/pelvis on 01/06/2017 showed no evidence of recurrence/metastatic disease. His surveillance colonoscopy on 03/17/2017 showed normal looking ileocolon anastomosis with no other abnormalities noted. 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 He has been followed by Dr. Son at pain clinic. His other medical illnesses include hypertension, hyperlipidemia, and COPD. He has a history of smoking for 58 years, previously up to 3 packs of cigarettes daily. He had cut down to 4 cigarettes per day, and he has been trying to quit. INTERIM HISTORY: CT scans on 07/08/2017 showed no evidence of recurrent or metastatic disease in the chest, abdomen, or pelvis. There were findings of chronic emphysema which were noted to have progressed compared to previous study from July 2014. There was central pulmonary artery enlargement compatible with pulmonary hypertension. There was diffuse fatty infiltration of the liver. There were degenerative changes in the thoracic spine and there was evidence of remote L1 and L5 compression fractures. His laboratory studies on 08/01/2018 did show a slight increase in the CEA level, to 5.1 ng/mL. Surveillance CT scans at that time showed chronic emphysema, suspected pulmonary hypertension, and unchanged infrarenal abdominal aortic aneurysm measuring 3.3 cm. There was no evidence of disease progression in the chest, abdomen, or pelvis. He continued on observation/expectant management. Surveillance colonoscopy on 11/16/2018 showed a few small diverticuli in the distal sigmoid colon. There were no other abnormal findings. Repeat CEA at that time was stable at 5.3 ng/mL. His surveillance colonoscopy on 12/27/2019 showed patent ileocolic anastomosis. There evidence of diverticulosis in the sigmoid colon. There were no other abnormalities noted. Surveillance CT scans on 01/23/2020 showed no evidence of new or progressed metastatic disease in the chest, abdomen, or pelvis. He continued on observation/expectant management. He is seen for a scheduled visit. He has not been feeling good generally. He has very limited activity and he says he is mostly just lying around, mainly because he has been cut off of his pain medication. By his account, this resulted from his being unable to keep an appointment at the pain clinic because of car trouble. Reports having severe pain in his lower back and right hip, rated at 8. His ECOG score is 3. Appetite is variable. His weight is down 5 or 6 pounds. He does not have fever. He has had some sweating with the hot weather. He has seasonal allergies. He has very little cough. He is short of breath with activity. He is smoking 4 to 5 cigarettes/day. He does not complain of chest pain. He has no GI/ complaints other than occasional heartburn. He does not complain of headache or dizziness, and he has no focal neurologic symptoms. Medications: Advair Diskus 1 (250-50 mcg/dose) Aerosol Powder, Breath Activated Inhalation b.i.d., Ativan 0.5 - 1 (1 mg) Tablet Oral t.i.d. PRN, Atorvastatin Calcium 1 (80 mg) Tablet Oral daily, Incruse Ellipta 1 (62.5 mcg/inh) Aerosol Powder, Breath Activated Inhalation daily, Lisinopril 1 (10 mg) Tablet Oral daily, Loratadine 1 (10 mg) Capsule Oral daily Allergies: No Known Allergies. Vital Signs: Performed on September 02, 2020 13:56 Height - 71.00 in Weight - 200.2 lbs (LOW) BSA - 2.11 sq.m BMI - 27.92 Temperature - 97.8 F (LOW) Pulse - 77 /min Respiration - 18 /min BP - 168/74 mm(hg) (HIGH) O2 Sat - 95 % (LOW) Pain - 8 Fatigue - 3 Physical Examination: Constitutional - He appears somewhat weak generally, and he has poor mobility, Eyes - Sclerae nonicteric. Conjunctivae clear, ENMT - No lesions noted in the oral cavity, Hematologic/Lymphatic - No cervical, clavicular, or axillary adenopathy, Respiratory - Lungs sound clear with diminished air movement bilaterally, Cardiovascular - Heart rhythm is regular. There is no murmur, gallop, or rub noted, Abdomen - Soft. Liver and spleen are not enlarged. There is no abdominal mass or ascites noted and there is no inguinal adenopathy, Extremities - No edema, Neurologic - No focal neurologic deficits noted. Lab/Imaging: CBC shows hemoglobin 13.1 g, white blood cell count 6600, and platelet count 230,000. Comprehensive metabolic profile is unremarkable. CEA is stable 3.9 ng/mL. Problem List: 1. 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 He underwent laparoscopic right hemicolectomy on 04/08/2016. He had no obstruction, perforation, or other high risk clinical features. He had adequate lymph node sampling, but there was pathologic evidence of vascular space invasion. Microsatellite instability studies showed normal expression of DNA mismatch repair proteins. His Oncotype DX which showed a recurrence score of 39, corresponding to a 3-year risk of recurrence of 18%. 2. Hypertension. 3. Hyperlipidemia. 4. COPD. 5. 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 Problems Addressed with this Encounter and Plan: 1. 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 He underwent laparoscopic right hemicolectomy on 04/08/2016. He had no obstruction, perforation, or other high risk clinical features. He had adequate lymph node sampling, but there was pathologic evidence of vascular space invasion. Microsatellite instability studies showed normal expression of DNA mismatch repair proteins. He had further evaluation with Oncotype DX which showed a recurrence score of 39, corresponding to a 3-year risk of recurrence of 18%. Given that result, he opted to have adjuvant chemotherapy. He then underwent adjuvant chemotherapy with 12 cycles of infusional 5-FU/leucovorin from 07/07/2016 through 12/08/2016. He had negative surveillance CT abdomen/pelvis on 01/06/2017 and there were no significant abnormalities noted on his surveillance colonoscopy on 03/17/2017. During follow-up he did show slight increase in his CEA level, but it then stabilized, but there has been no evidence of recurrence of the colon cancer on his surveillance CT scans or his surveillance colonoscopy. His CEA had subsequently stabilized. His overall clinical status has remained stable, thus far with no evidence of recurrence of the colon cancer. He remains on observation/expectant management. He will be scheduled for a follow-up visit in 6 months. 2. 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 He was cut off pain medication about a month ago, reportedly because she was unable to keep an appointment at his pain clinic. I will see if I can get him referred to a different pain clinic, as he does have very limited functional capacity in his current condition. Signed By: Vignesh Moreno M.D. <<Signature on File>>
== END 2020-09-02 06:08 | disposition home or self-care (01) ==
LOC: ONCMED 06:09
PROVIDERS: PCP Internal Medicine; Visit Provider Internal Medicine Medical Oncology
DX: C18.4 Malignant neoplasm of transverse colon (principal); I10 Essential (primary) hypertension; E78.5 Hyperlipidemia, unspecified; J44.9 Chronic obstructive pulmonary disease, unspecified; M47.9 Spondylosis, unspecified; G89.29 Other chronic pain; M54.5 Low back pain; Z79.899 Other long term (current) drug therapy
CPT/HCPCS: 99214

== ENCOUNTER → 2020-10-18 11:25 | Outpatient (BNVA) | payer MEDICARE, MEDICAID, SELFPAY | PROVIDERS: PCP Internal Medicine; Visit Provider Internal Medicine Pulmonary Disease | DX: J44.1 Chronic obstructive pulmonary disease with (acute) exacerbation (principal); Z20.822 Contact with and (suspected) exposure to COVID-19 | CPT/HCPCS: 87635 ==

== ENCOUNTER 2020-10-24 12:45 | Outpatient (CLI) | payer MEDICARE, MEDICAID, SELFPAY ==
--- NOTE | 2020-10-24 13:23 | PFTS_ITS ---
Date of Study:10/24/20 Date of Dictation: MECHANICS: Forced vital capacity (FVC) is normal. Forced expiratory volume in one second (FEV1) is reduced. FEV1/FVC is reduced. FLOW VOLUME LOOP: Reduced flow at all lung volumes with significant scooping. LUNG VOLUMES: Total lung capacity (TLC) is normal. Residual volume (RV) is normal. DIFFUSING CAPACITY FOR CARBON MONOXIDE: Severely reduced. INTERPRETATION: The pulmonary function tests are consistent with moderate airflow obstruction. There is no significant postbronchodilator response. Lung volumes are normal. Gas exchange (DLCO) is severely reduced. MTDD
== END 2020-10-24 12:46 | disposition home or self-care (01) ==
PROVIDERS: PCP Internal Medicine; Visit Provider Internal Medicine Pulmonary Disease
DX: J44.1 Chronic obstructive pulmonary disease with (acute) exacerbation (principal)
CPT/HCPCS: 94060; 94618; 94726; 94729; J7611

== ENCOUNTER 2020-11-08 11:21 | Outpatient (CLI) | payer MEDICARE, MEDICAID, SELFPAY ==
--- NOTE | 2020-11-08 11:33 | CT_ITS ---
WS: [id number] LDCT LUNG CANCER SCREENING HISTORY: NICOTINE Dependence, cigarettes TECHNIQUE: Axial imaging performed from the apices to 1 cm below the costophrenic angles. Coronal and sagittal reformats are submitted with axial MIP series. All CT scans at [facility] use at least one of these dose optimization techniques: automated exposure control; mA and/or kV adjustment per patient size (includes targeted exams where dose is matched to clinical indication); or iterativ e reconstruction. DLP: 54.58 mGy.cm DIvol: 1.58 mGy COMPARISON: 01/23/2020 Diagnostic quality: Satisfactory Lung Nodules: No pulmonary nodules or endobronchial lesions. Lungs: Paraseptal and centrilobular emphysema. Heart: Normal size heart. Other findings: Extensive atherosclerosis within the thoracic aorta. Pulmonary artery size is slightl y greater than aorta. No adenopathy. Exophytic low-attenuation nodule from the RIGHT kidney was descr ibed on 01/23/2020 is a cyst. Dorsal column stimulator electrodes over the mid thoracic spine. Increas e in thoracic kyphosis. CT/CT lung screening [id number] IMPRESSION: LUNG-RADS: 1-Negative FOLLOW UP: 12 Month: Continue annual screening with LDCT OTHER FINDINGS (S MODIFIER): None.
== END 2020-11-08 11:22 | disposition home or self-care (01) ==
LOC: RAD 11:25
PROVIDERS: PCP Internal Medicine; Visit Provider Internal Medicine
DX: Z12.2 Encounter for screening for malignant neoplasm of respiratory organs (principal); F17.210 Nicotine dependence, cigarettes, uncomplicated
CPT/HCPCS: 71271

== ENCOUNTER 2020-12-17 09:39 | Outpatient (CLI) | payer MEDICARE, MEDICAID, SELFPAY ==
--- NOTE | 2020-12-17 10:15 | USCV_ITS ---
Sully Cardoza Age: 75 Gender: M : 1945 Exam Date: 12/17/2020 10:28 Ordering Phys: Iram Laird MD ([email or web address]) Technologist: Jordyn Ledezma Exam Location: [facility] – [place] Indication: KNOWN AAA HISTORY: Diameter (cm) AP x Transverse x Length Velocity (cm/s) Waveform Prox Aorta: 1.75 x 2.04 x 59.10 Mid Aorta: 3.51 x 3.42 x 5.93 51.00 Distal Aorta: 1.72 x 2.02 x 65.30 Right Iliac Prox: 0.93 x 0.85 x 138.60 Left Iliac Prox: 0.73 x 0.85 x 163.30 Stent Prox Landing x x Aneurysmal Sac Max x x Lt Lat Sac Dim Rt Lat Sac Dim Stent Dist Landing x x Right Iliac Stent x x Left Iliac Stent x x Right Renal Art Left Renal Art FINDINGS: Mild to moderate diffuse plaques in the abdominal aorta Fusiform dilatation of the perirenal aorta Moderate plaques in the common iliac arteries CONCLUSIONS Fusiform aneurysm of the mid abdominal aorta measuring 3.51 x 3.42 cm Mild to moderate diffuse plaques in the abdominal aorta Moderate diffuse plaques in the iliac arteries bilaterally Dr Iram Laird MD [facility] (Electronically Signed) Final Date: 17 December 2020 18:24 S
== END 2020-12-17 09:40 | disposition home or self-care (01) ==
LOC: RAD 09:52
PROVIDERS: PCP Internal Medicine; Visit Provider Internal Medicine Cardiovascular Disease
DX: I71.4 Abdominal aortic aneurysm, without rupture (principal)
CPT/HCPCS: 93978

== ENCOUNTER 2021-03-05 12:44 | Outpatient (CLI) | payer MEDICARE, MEDICAID, SELFPAY ==
--- NOTE | 2021-03-05 12:56 | CT_ITS ---
WS: [id number] CT CHEST, ABDOMEN AND PELVIS WITH CONTRAST HISTORY: MALIGNANT NEOPLASM OF TRANSVERSE COLON TECHNIQUE: Contiguous 5 mm axial imaging performed through the chest, abdomen and pelvis with IV cont rast, oral contrast has been provided. Coronal and sagittal reformats chest. Coronal and sagittal ref ormats through the abdomen and pelvis. All CT scans at [facility] use at least one of these d ose optimization techniques: automated exposure control; mA and/or kV adjustment per patient size (in cludes targeted exams where dose is matched to clinical indication); or iterative reconstruction. CONTRAST: Visipaque 320; 95 mL IV. DLP: 1735.15 mGycm COMPARISON: 01/23/[address]: Chronic paraseptal emphysema. No pulmonary mass or nodule. Benign granuloma RIGHT upper lob e. Moderate atherosclerosis aorta. No aneurysm or dissection. Mild intimal thickening and calcified p laque. Pulmonary artery size is enlarged. No mediastinal or hilar adenopathy. Heart size is normal. N o pericardial or pleural effusions. Mild increase in the thoracic kyphosis. Degenerative disc disease and narrowing throughout the thoracic spine. Abdomen CT: Normal liver, gallbladder, spleen and pancreas. Normal RIGHT adrenal gland. A slight nodu larity and thickening of the LEFT adrenal gland. Mild bilateral perinephric stranding and bilateral r enal cysts. No change in the cyst. No solid mass or obstruction. Mild atherosclerosis of the aorta. M ild dilatation of the infrarenal aorta with a maximum diameter 3.4 cm. Atherosclerotic plaque continu es into the iliac arteries. No ascites or adenopathy within the abdomen. Ventral abdominal wall hernia contains fat only. Hernia is supraumbilical. No GI tract obstruction. RIGHT hemicolectomy. The ileocolic anastomosis is stable. No recurrent mass or obstruction. There are a few scattered diverticula in the distal colon and sigmoid without acute d iverticulitis. Pelvic CT: Well-distended urinary bladder. No free fluid or adenopathy in the pelvis. No osteoblastic or osteolytic bone disease is identified. CT/CT chest abd pel w con* IMPRESSION: 1. No evidence for metastatic disease to the chest, abdomen or pelvis. 2. Bilateral renal cysts with no obstruction. 3. Status post RIGHT hemicolectomy. Ileocolic anastomosis is intact with no re current mass or obstruction. 4. Stable infrarenal abdominal aortic aneurysm with a maximum diameter 3.7 cm. 5. Mild pulmonary hypertension.
[2021-03-05 14:10] LABS: Blood Urea Nitrogen 17 mg/dL (8-23)
[2021-03-05] MEDS: iodixanol 320 mg/mL 100mL Btl IV (14:20)
[2021-03-05] MEDS: iohexol 300 mg/mL 50 mL Btl PO (14:21)
== END 2021-03-05 12:45 | disposition home or self-care (01) ==
PROVIDERS: PCP Internal Medicine; Visit Provider Internal Medicine Medical Oncology
DX: C18.4 Malignant neoplasm of transverse colon (principal); Q61.02 Congenital multiple renal cysts; Z90.49 Acquired absence of other specified parts of digestive tract; I71.4 Abdominal aortic aneurysm, without rupture; I27.20 Pulmonary hypertension, unspecified
CPT/HCPCS: 71260; 74177; 82565; 84520; Q9967

== ENCOUNTER 2021-03-10 12:21 | Outpatient (CLI) | payer MEDICARE, MEDICAID, SELFPAY ==
[2021-03-10 12:51] LABS: Basophils % 0.3 %; Eosinophils # 0.3 10^3/uL (0.0-0.8); Eosinophils % 3.7 %; Hematocrit 41.7 % (42.0-52.0); Hemoglobin 13.5 g/dL (11.7-16.6); Lymphocytes # 1.2 10^3/uL (0.8-4.8); Mean Corpuscular HGB Conc 32.4 g/dL (30.0-36.0); Mean Platelet Volume 10.3 fL (7.4-10.4); Monocytes # 0.4 10^3/uL (0.2-0.9); Monocytes % 6.1 %; Neutrophils # 4.97 10^3/uL (1.8-7.7); Neutrophils % 72.8 %; Nucleated Red Blood Cells % 0 %; Platelet Count 242 10^3/cmm (130-400); Red Blood Count 3.97 10^6/uL (4.1-5.3); Red Cell Distribution Width 11.9 % (12.1-15.1); White Blood Count 6.8 10^3/uL (4.0-10.0)
[2021-03-10 13:42] LABS: Alanine Aminotransferase 10 U/L (0-41); Albumin Level 4.3 g/dL (3.5-5.2); Alkaline Phosphatase 69 IU/L (40-130); Anion Gap 12.9 (5-19); Aspartate Amino Transferase 14 U/L (0-40); Blood Urea Nitrogen 14 mg/dL (8-23); Calcium 9.3 mg/dL (8.5-10.5); Carbon Dioxide 27 mmol/L (22-29); Chloride 102 mmol/L (98-107); Globulin 3.2 g/dL (1.3-4.6); Glucose 93 mg/dL (65-115); Osmolality Calculated 284 mOsm/kg (285-295); Potassium 4.9 mmol/L (3.5-5.1); Sodium 137 mmol/L (136-145); Total Bilirubin 0.5 mg/dL (0.15-1.2); Total Protein 7.5 g/dL (6.6-8.7)
--- NOTE | 2021-03-11 06:20 | ONC FU_ITS ---
Dr. Moreno Patient Follow-Up Note Patient: Sully Cardoza Unit #: [id number]: 1945 Dicatated By: Vignesh Moreno M.D.Date of Visit:Mar 10, 2021 Onc Med Follow-up/Prog Note Chief Complaint: Colon cancer. 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 He was admitted to the hospital in March 2016 after presenting to the emergency room with a two-week history of abdominal pain. He also had been having constipation, and just prior to admission he developed nausea/vomiting. CT of the abdomen/pelvis on 03/21/2016 showed a short segment of circumferential bowel wall thickening with luminal narrowing in the proximal transverse colon. It had an apple core type appearance suggestive of a primary colon neoplasm. There are no findings of obstruction present and there was no appreciable lymphadenopathy noted. There is no other obvious metastatic involvement. Colonoscopy on 03/23/2016 showed a partially obstructing malignant appearing mass in the distal ascending colon. It is estimated 5 x 4 cm. Biopsy showed microscopic foci of infiltrating adenocarcinoma. On 04/08/2016 he underwent laparoscopic right hemicolectomy. The operative note described a partially obstructing mass at the proximal transverse colon with no evidence of peritoneal carcinomatosis or other metastatic disease. Pathology showed low-grade (well to moderately differentiated) infiltrating adenocarcinoma with invasion through the muscularis propria into the pericolonic fat. There was evidence of lymphovascular space invasion. The proximal margin was measured 16 cm, distal margin at 7 cm, and radial margin at 2 mm. There was no involvement and 14 pericolonic lymph nodes. Thus, the pathologic staging was T3, N0. An assessment for microsatellite instability showed normal expression of DNA mismatch repair proteins. I had seen the patient initially on 05/20/2016. At the time, he has indicated he would be willing to consider adjuvant chemotherapy if he was higher than average risk for recurrence. As such, I did request further evaluation with Oncotype DX. It showed a recurrence score of 39, corresponding to a 3-year risk of recurrence of 18% with a T3 primary lesion. Given that result, I recommended adjuvant chemotherapy with infusional 5-FU/leucovorin, and he did agree to treatment as recommended. His cycle 1 chemotherapy began on 07/07/2016. He tolerated it well. He was then able to continue treatment with no delays or dose adjustments. He began his 12th and final cycle of chemotherapy on 12/08/2016. Surveillance CT of the abdomen/pelvis on 01/06/2017 showed no evidence of recurrence/metastatic disease. His surveillance colonoscopy on 03/17/2017 showed normal looking ileocolon anastomosis with no other abnormalities noted. 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 He has been followed by Dr. Son at pain clinic. His other medical illnesses include hypertension, hyperlipidemia, and COPD. He has a history of smoking for 58 years, previously up to 3 packs of cigarettes daily. He had cut down to 4 cigarettes per day, and he has been trying to quit. INTERIM HISTORY: CT scans on 07/08/2017 showed no evidence of recurrent or metastatic disease in the chest, abdomen, or pelvis. There were findings of chronic emphysema which were noted to have progressed compared to previous study from July 2014. There was central pulmonary artery enlargement compatible with pulmonary hypertension. There was diffuse fatty infiltration of the liver. There were degenerative changes in the thoracic spine and there was evidence of remote L1 and L5 compression fractures. His laboratory studies on 08/01/2018 did show a slight increase in the CEA level, to 5.1 ng/mL. Surveillance CT scans at that time showed chronic emphysema, suspected pulmonary hypertension, and unchanged infrarenal abdominal aortic aneurysm measuring 3.3 cm. There was no evidence of disease progression in the chest, abdomen, or pelvis. He continued on observation/expectant management. Surveillance colonoscopy on 11/16/2018 showed a few small diverticuli in the distal sigmoid colon. There were no other abnormal findings. Repeat CEA at that time was stable at 5.3 ng/mL. His surveillance colonoscopy on 12/27/2019 showed patent ileocolic anastomosis. There evidence of diverticulosis in the sigmoid colon. There were no other abnormalities noted. Surveillance CT scans on 01/23/2020 showed no evidence of new or progressed metastatic disease in the chest, abdomen, or pelvis. He continued on observation/expectant management. Surveillance CT scans on 03/05/2021 showed no evidence for metastatic disease to the chest, abdomen, or pelvis. An infrarenal abdominal aortic aneurysm appeared stable measuring 3.4 cm. There was evidence for chronic paraseptal emphysema and mild pulmonary hypertension. He is seen for a scheduled visit. He has been feeling somewhat better generally, after he recently started using medical marijuana. His pain is better controlled and he says his energy is starting to come back. He still has limited activity, but he is able to get up and around better. ECOG score is 2. His appetite has improved. He has not had fever. Occasionally has sweating at night. He has been having bad sinus congestion/drainage. He has been seeing Dr. Leung for his COPD, and he now has less cough and his breathing has improved. He does not complain of chest pain. He has no GI or complaints. He continues to have chronic pain, but it is more tolerable with the marijuana. He does not complain of headache. He occasionally has dizziness. He has a little bit of numbness in his right foot. Medications: Advair Diskus 1 (250-50 mcg/dose) Aerosol Powder, Breath Activated Inhalation b.i.d., Atorvastatin Calcium 1 (80 mg) Tablet Oral daily, Incruse Ellipta 1 (62.5 mcg/inh) Aerosol Powder, Breath Activated Inhalation daily, Lisinopril 1 (10 mg) Tablet Oral daily, Loratadine 1 (10 mg) Capsule Oral daily, medical marijuana Inhaler PRN Allergies: No Known Allergies. Vital Signs: Performed on Mar 10, 2021 13:46 Height - 71.00 in Weight - 196.2 lbs (LOW) BSA - 2.09 sq.m BMI - 27.36 Temperature - 97.8 F (LOW) Pulse - 72 /min Respiration - 18 /min BP - 184/75 mm(hg) (HIGH) O2 Sat - 99 % Pain - 8 Fatigue - 6 Physical Examination: Constitutional - He looks a little better generally, Eyes - Sclerae nonicteric. Conjunctivae clear, ENMT - No lesions noted in the oral cavity, Hematologic/Lymphatic - No cervical, clavicular, or axillary adenopathy, Respiratory - Lungs sound clear with diminished air movement bilaterally, Cardiovascular - Heart rhythm is regular. There is no murmur, gallop, or rub noted, Abdomen - Soft. Liver and spleen are not enlarged. There is no abdominal mass or ascites noted and there is no inguinal adenopathy, Extremities - No edema, Neurologic - No focal neurologic deficits noted. Lab/Imaging: Test performed on Mar 10, 2021 12:35 Sodium 137 mmol/L Potassium 4.9 mmol/L Chloride 102 mmol/L CO2 27 mmol/L Anion Gap 12.9 BUN 14 mg/dL Creatinine 1.0 mg/dL Cr Clearance (Est) 77.87 mL/min Glucose 93 mg/dL Osmolality - Calculated 284 mOsm/kg Calcium 9.3 mg/dL Protein, Total 7.5 g/dL Albumin 4.3 g/dL Globulin 3.2 g/dL Bilirubin, Total 0.5 mg/dL ALT (SGPT) 10 U/L AST (SGOT) 14 U/L Alkaline Phosphatase 69 IU/L WBC 6.8 10 3/uL RBC 3.97 10 6/uL HGB 13.5 g/dL HCT 41.7 % MCV 105.0 fl MCH 34.0 pg MCHC 32.4 g/dL RDW 11.9 % Platelet Count 242 10 3/cmm MPV 10.3 fL Neutrophils 4.97 10 3/uL Lymphocytes 1.2 10 3/uL Monocytes 0.4 10 3/uL Eosinophils 0.3 10 3/uL Basophils 0.0 10 3/uL Neutrophil % 72.8 % Lymphocyte % 17.0 % Monocyte % 6.1 % Eosinophil % 3.7 % Basophils % 0.3 % NRBC % 0 % CEA 5.0 ng/mL Problem List: 1. Low-grade infilrating adenocarcinoma of the proximal transverse colon, stage IIA (T3, N0, M0). 2. Hypertension. 3. Hyperlipidemia. 4. COPD. 5. 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 He underwent laparoscopic right hemicolectomy on 04/08/2016. He had no obstruction, perforation, or other high risk clinical features. He had adequate lymph node sampling, but there was pathologic evidence of vascular space invasion. Microsatellite instability studies showed normal expression of DNA mismatch repair proteins. He had further evaluation with Oncotype DX which showed a recurrence score of 39, corresponding to a 3-year risk of recurrence of 18%. Given that result, he opted to have adjuvant chemotherapy. He then underwent adjuvant chemotherapy with 12 cycles of infusional 5-FU/leucovorin from 07/07/2016 through 12/08/2016. He had negative surveillance CT abdomen/pelvis on 01/06/2017 and there were no significant abnormalities noted on his surveillance colonoscopy on 03/17/2017. During follow-up he did show slight increase in his CEA level, but it then stabilized. He had negative surveillance colonoscopy again in December 2019 and there has been no evidence of metastatic disease on his surveillance CT scans. He has had ongoing problems with chronic pain associated with degenerative disease of the spine, which has significantly limited his function. His CEA remains slightly elevated but similar to previous studies. Overall, his clinical status has improved somewhat since his last visit. He is now 4 years out from completion of chemotherapy with no evidence of recurrence of the colon cancer. He will be scheduled for a follow-up visit in 6 months. Signed By: Vignesh Moreno M.D. <<Signature on File>>
== END 2021-03-10 12:22 | disposition home or self-care (01) ==
LOC: ONCMED 12:24
PROVIDERS: PCP Internal Medicine; Visit Provider Internal Medicine Medical Oncology
DX: Z08 Encounter for follow-up examination after completed treatment for malignant neoplasm (principal); Z85.038 Personal history of other malignant neoplasm of large intestine; I10 Essential (primary) hypertension; E78.5 Hyperlipidemia, unspecified; J44.9 Chronic obstructive pulmonary disease, unspecified; M19.90 Unspecified osteoarthritis, unspecified site; G89.29 Other chronic pain; Z79.899 Other long term (current) drug therapy; Z92.21 Personal history of antineoplastic chemotherapy
CPT/HCPCS: 36415; 80053; 82378; 85025; 99214

== ENCOUNTER 2021-04-03 13:55 | Outpatient (RCR) | payer MEDICARE, MEDICAID, SELFPAY | END 2021-05-02 23:59 | disposition home or self-care (01) | LOC: PULRHB 13:55 | PROVIDERS: PCP Internal Medicine; Visit Provider Internal Medicine Pulmonary Disease | DX: J44.9 Chronic obstructive pulmonary disease, unspecified (principal) | CPT/HCPCS: 94618 ==

== ENCOUNTER → 2021-09-24 14:44 | Outpatient (BNVA) | payer MEDICARE, MEDICAID, SELFPAY | PROVIDERS: PCP Internal Medicine; Visit Provider Internal Medicine Pulmonary Disease | DX: J44.1 Chronic obstructive pulmonary disease with (acute) exacerbation (principal); Z71.6 Tobacco abuse counseling; F17.210 Nicotine dependence, cigarettes, uncomplicated; I10 Essential (primary) hypertension; E78.5 Hyperlipidemia, unspecified | CPT/HCPCS: 99214 ==

== ENCOUNTER → 2021-12-02 13:45 | Outpatient (BNVA) | payer MEDICARE, MEDICAID, SELFPAY | PROVIDERS: PCP Internal Medicine; Visit Provider Internal Medicine Cardiovascular Disease | DX: I71.4 Abdominal aortic aneurysm, without rupture (principal); F17.200 Nicotine dependence, unspecified, uncomplicated; E78.2 Mixed hyperlipidemia; I10 Essential (primary) hypertension | CPT/HCPCS: 99214 ==

== ENCOUNTER 2021-12-08 13:57 | Outpatient (CLI) | payer MEDICARE, MEDICAID, SELFPAY ==
--- NOTE | 2021-12-08 14:05 | CT_ITS ---
WS: [id number] LDCT LUNG CANCER SCREENING HISTORY: HX OF TOBACCO USE TECHNIQUE: Axial imaging performed from the apices to 1 cm below the costophrenic angles. Coronal and sagittal reformats are submitted with axial MIP series. All CT scans at [facility] use at least one of these dose optimization techniques: automated exposure control; mA and/or kV adjustment per patient size (includes targeted exams where dose is matched to clinical indication); or iterativ e reconstruction. DLP: 76.11 mGy.cm DIvol: Mean CTDIvol: 1.60 (mGy) COMPARISON: 11/08/[address] 03/05/2021 Diagnostic quality: Satisfactory Lung Nodules: 3 mm nodule at the RIGHT apex. No pulmonary mass or suspicious nodule. No pneumonia. Be nign calcified granuloma RIGHT upper lobe. Lungs: Centrilobular and paraseptal emphysema. Heart: Normal size heart. No effusion. Other findings: No adrenal mass. Stable cysts upper pole RIGHT kidney. CT/CT lung screening [id number] IMPRESSION: LUNG-RADS: 2-Benign Appearance or Behavior FOLLOW UP: 12 Month: Continue annual screening with LDCT OTHER FINDINGS (S MODIFIER): None.
== END 2021-12-08 13:58 | disposition home or self-care (01) ==
LOC: RAD 13:58
PROVIDERS: PCP Internal Medicine; Visit Provider Internal Medicine
DX: Z12.2 Encounter for screening for malignant neoplasm of respiratory organs (principal); Z87.891 Personal history of nicotine dependence
CPT/HCPCS: 71271

== ENCOUNTER 2021-12-16 10:04 | Oncology outpatient (recurring) (ONCR) | payer MEDICARE, MEDICAID, SELFPAY ==
[2021-12-16 10:35] LABS: Basophils % 0.3 %; Eosinophils # 0.3 10^3/uL (0.0-0.8); Eosinophils % 4.2 %; Hemoglobin 12.4 g/dL (11.7-16.6); Lymphocytes # 1.4 10^3/uL (0.8-4.8); Lymphocytes % 17.8 %; Mean Corpuscular HGB Conc 31.8 g/dL (30.0-36.0); Mean Corpuscular Hemoglobin 33.8 pg (28.0-34.0); Mean Corpuscular Volume 106.3 fl (80-94); Monocytes # 0.6 10^3/uL (0.2-0.9); Monocytes % 7.5 %; Neutrophils # 5.35 10^3/uL (1.8-7.7); Neutrophils % 69.8 %; Nucleated Red Blood Cells % 0 %; Platelet Count 229 10^3/cmm (130-400); Red Blood Count 3.67 10^6/uL (4.1-5.3); Red Cell Distribution Width 12.6 % (12.1-15.1); White Blood Count 7.7 10^3/uL (4.0-10.0)
[2021-12-16 11:06] LABS: Carcinoembryonic Antigen 5.7 ng/mL (0.0-4.7)
[2021-12-16 11:21] LABS: Alanine Aminotransferase 19 U/L (0-41); Albumin Level 4.3 g/dL (3.5-5.2); Alkaline Phosphatase 65 U/L (40-130); Aspartate Amino Transferase 20 U/L (0-40); Blood Urea Nitrogen 18 mg/dL (8-23); Calcium 9.3 mg/dL (8.5-10.5); Carbon Dioxide 26 mmol/L (22-29); Chloride 104 mmol/L (98-107); Glucose 107 mg/dL (65-115); Osmolality Calculated 294 mOsm/kg (285-295); Sodium 141 mmol/L (136-145); Total Bilirubin 0.4 mg/dL (0.15-1.2); Total Protein 7.3 g/dL (6.6-8.7)
== END 2021-12-31 23:59 | disposition home or self-care (01) ==
PROVIDERS: PCP Internal Medicine; Referring Provider Surgery; Visit Provider Internal Medicine Medical Oncology
DX: Z08 Encounter for follow-up examination after completed treatment for malignant neoplasm (principal); Z85.038 Personal history of other malignant neoplasm of large intestine; F17.210 Nicotine dependence, cigarettes, uncomplicated; Z92.21 Personal history of antineoplastic chemotherapy
CPT/HCPCS: 36415; 80053; 82378; 85025; 99214; G0463

== ENCOUNTER 2022-02-02 11:47 | Outpatient (CLI) | payer MEDICARE, MEDICAID, SELFPAY ==
[2022-02-02] MEDS: iohexol 350 mg/mL 100 mL Btl PO (12:02)
[2022-02-02] MEDS: iohexol 350 mg/mL 100 mL Btl IV (13:29)
--- NOTE | 2022-02-02 14:00 | CT_ITS ---
WS: [id number] CT ABDOMEN AND PELVIS WITH CONTRAST HISTORY: Follow-up colon cancer. TECHNIQUE: Imaging performed of the abdomen and pelvis with IV contrast. Single phase imaging of the abdomen. Coronal and sagittal reformats are submitted. All CT scans at [facility] use at [facility] st one of these dose optimization techniques: automated exposure control; mA and/or kV adjustment per patient size (includes targeted exams where dose is matched to clinical indication); or iterative re construction. IV CONTRAST: Omnipaque 350; 95 mL IV. Oral contrast: No DLP: 1199.92 mGy.cm COMPARISON: 03/05/2021 Lower thorax: Emphysematous changes at the lung bases. Heart is normal size. No hiatal hernia. Liver/biliary system: Normal size with no intrahepatic dilatation. Gallbladder: Normal. No gallstones or wall thickening. No pericholecystic fluid. Pancreas: Normal size pancreas and pancreatic duct. No adjacent inflammation. Spleen: Normal size spleen. No mass or infarct. Adrenal glands: Normal RIGHT adrenal gland. Very mild stable thickening of the LEFT adrenal gland bon suring 14 x 8 mm. Right kidney: Normal size kidney. Mild perinephric stranding. Large lobulated cyst from the upper kassy e measures 4.6 x 4.8 cm. No hydronephrosis. Left kidney: No hydronephrosis. Mild perinephric stranding. Aorta: Atherosclerosis aorta. Very mild aneurysmal dilatation of the infrarenal aorta measures 3.6 x 3.7 cm. Mild increase in size of the aorta as compared to 03/05/2021. Lymphadenopathy: None. Free fluid: None. GI tract: Normal but nondistended stomach. No small bowel obstruction. Prior RIGHT hemicolectomy. Ile ocolic anastomosis is intact. No adjacent soft tissue or obstruction. Numerous diverticula throughout the distal colon without acute diverticulitis. Abdominal wall: Fat-containing supraumbilical hernias. Pelvis: No free fluid or adenopathy. Bones: Increase in lumbar lordosis. L1 and L5 mild compression deformities. CT/CT abdomen pelvis w con* [id number] IMPRESSION: 1. No metastatic disease within the abdomen or pelvis. 2. Enlarging infrarenal abdominal aortic aneurysm. Aneurysm maximum diameter i s now 3.7 cm as compared to 3.4 cm on the prior examination. 3. Status post RIGHT hemicolectomy with ileocolic anastomosis, unchanged.
== END 2022-02-02 11:48 | disposition home or self-care (01) ==
LOC: RAD 11:48
PROVIDERS: PCP Internal Medicine; Visit Provider Internal Medicine Medical Oncology
DX: C18.4 Malignant neoplasm of transverse colon (principal); I71.43 Infrarenal abdominal aortic aneurysm, without rupture; Z90.49 Acquired absence of other specified parts of digestive tract
CPT/HCPCS: 74177

== ENCOUNTER 2022-02-16 11:23 | Outpatient (CLI) | payer MEDICARE, MEDICAID, SELFPAY ==
--- NOTE | 2022-02-16 12:00 | USCV_ITS ---
Sully Cardoza Age: 76 Gender: M : 1945 Exam Date: 02/16/2022 11:36 Ordering Phys: Iram Laird MD ([email or web address] [place]) Technologist: TAYLOR Exam Location: [facility] [place] Indication: AAA HISTORY: Diameter (cm) AP x Transverse x Length Velocity (cm/s) Waveform Prox Aorta: 2.12 x 2.41 x 76.00 Triphasic Mid Aorta: 3.80 x 4.15 x 5.45 50.50 Triphasic Distal Aorta: 2.03 x 1.84 x 129.70 Triphasic Right Iliac Prox: 1.13 x 0.93 x 114.00 Triphasic Left Iliac Prox: 0.90 x 0.94 x 153.60 Triphasic Stent Prox Landing x x Aneurysmal Sac Max x x Lt Lat Sac Dim Rt Lat Sac Dim Stent Dist Landing x x Right Iliac Stent x x Left Iliac Stent x x Right Renal Art Left Renal Art FINDINGS: AAA seen in mid AO measures approx. 5.45 cm in length. Limited study due to heavy gas Moderate diffuse plaques in the abdominal aorta Fusiform aneurysm of the mid abdominal aorta measuring 3.8 x 4.1 x 5.4 cm CONCLUSIONS Fusiform aneurysm of the mid abdominal aorta measuring 3.8 x 4.1 x 5.4 cm. Moderate diffuse plaques in the abdominal aorta Elevated velocity in the distal abdominal aorta, suggesting less than 60% stenosis No aneurysms are noted in the proximal and distal abdominal aorta Normal dimensions of the proximal common iliac arteries. Technically difficult study Consider CTA to better evaluate the aorta and iliac arteries Dr Iram Laird MD [facility] (Electronically Signed) Final Date: 16 February 2022 23:13 S
== END 2022-02-16 11:24 | disposition home or self-care (01) ==
LOC: RAD 11:25
PROVIDERS: PCP Internal Medicine; Visit Provider Internal Medicine Cardiovascular Disease
DX: I70.0 Atherosclerosis of aorta; I71.40 Abdominal aortic aneurysm, without rupture, unspecified
CPT/HCPCS: 93978

== ENCOUNTER 2022-07-23 15:50 | Outpatient (CLI) | payer MEDICARE, MEDICAID, SELFPAY ==
--- NOTE | 2022-07-23 | CT_ITS ---
WS: [id number] EXAMINATION: CT angio abdomen [id number] ORDER DATE: 07/23/2022 12:00 AM COMPARISON: 02/02/2022 HISTORY: AAA TECHNIQUE: Imaging performed of the abdomen and pelvis with IV contrast. Single phase imaging follow ed by mid imaging and 3-D reformats not supervised by the radiologist. All CT scans at [facility] are use at least one of these dose optimization techniques: automated exposure control; mA and/or kV adjustment per patient size (includes targeted exams where dose is matched to clinical indication); or iterative reconstruction. IV CONTRAST: Omnipaque 350; 100 mL IV. Oral contrast: No TOTAL EXAM DLP: 386.78 mGy.cm FINDINGS: Vasculature:: Diameter of the infrarenal aortic aneurysmal lumen 32 mm. Overall diameter 36 x 37 mm u nchanged. No evidence of significant stenosis in the celiac or superior mesenteric arteries. Moderate atherosclerotic calcified plaque is present. Similar changes noted in both single renal arteries. Mo derate scattered plaque without significant stenosis is seen in both common iliac arteries as visuali zed. Lower thorax: Emphysematous changes at the lung bases. Heart is normal size. No hiatal hernia. Liver/biliary system: Normal size with no intrahepatic dilatation. Gallbladder: Normal. No gallstones or wall thickening. No pericholecystic fluid. Pancreas: Normal size pancreas and pancreatic duct. No adjacent inflammation. Spleen: Normal size spleen. No mass or infarct. Adrenal glands: Normal RIGHT adrenal gland. Very mild stable thickening of the LEFT adrenal gland measuring 14 x 8 mm. Right kidney: Normal size kidney. Mild perinephric stranding. Large lobulated cyst from the upper pole measures 4.6 x 4.8 cm. No hydronephrosis. Left kidney: No hydronephrosis. Mild perinephric stranding. Aorta: Atherosclerosis aorta. Very mild aneurysmal dilatation of the infrarenal aorta measures 3.6 x 3.7 with luminal diameter of 32 mm, no change from previous. Free fluid: None. GI tract: Normal but nondistended stomach. No small bowel obstruction. Prior RIGHT hemicolectomy only partially visualized due to the scan terminating at approximately this level.. There was a small ventral abdominal wall fat supraumbilical hernia seen CT/CT angio abdomen [id number] IMPRESSION: No change in the infrarenal abdominal aortic aneurysm. Aneurysm maximum diamete r remains at about 37 mm.
[2022-07-23] MEDS: iohexol 350 mg/mL 500 mL Btl (per mL) IV (16:45)
== END 2022-07-23 15:51 | disposition home or self-care (01) ==
LOC: RAD 15:51
PROVIDERS: PCP Internal Medicine; Visit Provider Internal Medicine
DX: I71.43 Infrarenal abdominal aortic aneurysm, without rupture (principal)
CPT/HCPCS: 74175; Q9967

== ENCOUNTER 2023-01-05 13:10 | Outpatient (CLI) | payer MEDICARE, MEDICAID, SELFPAY ==
--- NOTE | 2023-01-05 13:17 | CT_ITS ---
WS: [id number] LDCT LUNG CANCER SCREENING TECHNIQUE: Noncontrast CT of the chest with coronal and sagittal reformatted images. CLINICAL INFORMATION: NICOTINE DEPENDENCE,CIGARETTES COMPARISON: CT 12/08/2021 DLP: 60.90 mGy.cm DIvol: Mean CTDIvol: 1.30 (mGy) All CT scans at [facility] use at least one of these dose optimization techniques: automat ed exposure control; mA and/or kV adjustment per patient size (includes targeted exams where dose is matched to clinical indication); or iterative reconstruction. FINDINGS: Stable tiny noncalcified nodule RIGHT upper lobe anteriorly. Calcified granuloma RIGHT upper lobe. Stable moderate centrilobular and paraseptal emphysema. Partially visualized cyst upper pole RIGHT ki dney. Adrenal glands are normal. Normal GE junction. Diffuse fatty infiltration of the liver. Normal calibe r thoracic aorta. Aortic calcification. Coronary calcification. No mediastinal or hilar lymphadenopat hy. No axillary lymphadenopathy. Moderate thoracic kyphosis. Dorsal spinal stimulator. IMPRESSION: CT/CT lung screening [id number] LUNG-RADS: 2-Benign Appearance or Behavior FOLLOW UP: 12 Month: Continue annual screening with LDCT
== END 2023-01-05 13:11 | disposition home or self-care (01) ==
LOC: RAD 13:14
PROVIDERS: PCP Internal Medicine; Visit Provider Internal Medicine
DX: Z12.2 Encounter for screening for malignant neoplasm of respiratory organs (principal); F17.210 Nicotine dependence, cigarettes, uncomplicated
CPT/HCPCS: 71271